=== PATIENT | female | born 1995 | race Caucasian/White ===

== ENCOUNTER → 2016-06-10 | Outpatient (CLI) | payer MEDICAID ==
[~2016-06-10] MED LIST: COLACE-DPS100 MG PO; FEOSOL-DPS325 MG PO; MOTRIN-DPS800 MG PO; MYLICON DPS80 MG PO; NIPPLECREAM TP; PERCOCET 5 DPS1 TAB PO; PRENATAL VIT1 TAB PO
--- NOTE | ~2016-06-10 | ECH ---
Transthoracic Echocardiography Report (TTE) Demographics Patient Name KARI GAMA Date of Study 06/10/2016 Patient Number [id number] Visit Number [id number] Date of 1995 Room Number Accession Number [id number] Gender Female Age 21 year(s) Referring Ramses Saleh Physician Office Clin Asst Kati Valdez Physician HOSTESS CASHIER RDCS Physician Interpreting Suresh Junior P D Driver Physician MD Supervising Ordering Physician Ramses Saleh MD/MLP HOSTESS CASHIER Nurse Stress Science Professor Conclusions Summary Technically good exam. The estimated left ventricular ejection fraction is 60-65%. Mild mitral regurgitation by color Doppler. Trivial tricuspid regurgitation by color Doppler. Normal pulmonary pressures. Procedure Type of Study TTE procedure:Echo Complete SF. Procedure Date Date: 06/10/2016 Start: 09:27 AM Technical Quality: Good visualization Indications:Murmur. Additional Indications:5 months Appropriate Use Criteria: 9 Height: 56 inches Weight: 104 pounds BSA: 1.34 m Rhythm: NSR HR: 77 bpm BP: 96/44 mmHg M-Mode/2D Measurements LV Diastolic Dimension: 4.65 cm LV Systolic Dimension: 3.13 cm LV Septum Diastolic: 0.66 cm LV PW Diastolic: 0.69 cm AO Root Dimension: 2.05 cm Cardiac Output: 2.44 l/min LA Dimension: 2.86 cm Cardiac Index: 1.82 l/min*m RV Diastolic Dimension: 3.3 cm LA volume index: 30 ml/m LVOT: 1.47 cm LVOT VTI: 18.68 cm RV Base: 2.6 cm LV Stroke volume: 31.69 ml RV Mid: 1.8 cm LV Stroke volume index: 23.65 ml/m TAPSE: 3 cm TDI-S': 16 cm/s Doppler Measurements AV Peak Velocity: 1.6 m/s MV Peak E-Wave: 1.14 m/s AV Peak Gradient: 10.24 mmHg MV Peak A-Wave: 0.58 m/s AV Mean Gradient: 5.8 mmHg MV E/A Ratio: 1.98 LVOT Peak Velocity: 0.95 m/s MV P1/2t: 51.3 msec AV Area (Continuity):1.12 cm MV Deceleration Time: 178.2 msec TR Velocity:2.32 m/s MV Area (PHT): 4.29 cm TR Gradient:21.57 mmHg PV Peak Velocity: 1.36 m/s Estimated RAP:3 mmHg PV Peak Gradient: 7.36 mmHg Estimated RVSP: 25 mmHg Estimated PASP: 24.57 mmHg E' Septal Velocity: 0.11 m/s A' Septal Velocity: 0.07 m/s E' Lateral Velocity: 0.18 m/s A' Lateral Velocity: 0.06 m/s RA Area: 10.67 cm Findings Left Ventricle Normal left ventricle size and function. Diastolic assessment reveals normal relaxation. Right Ventricle Normal right ventricle structure and function. Left Atrium Normal left atrial size. Right Atrium Normal right atrial size. Mitral Valve Normal mitral valve structure and function. Mild mitral regurgitation by color Doppler. Aortic Valve Normal aortic valve structure and function. Tricuspid Valve Normal tricuspid valve structure and function. Trivial tricuspid regurgitation by color Doppler. Normal pulmonary pressures. Pulmonic Valve Normal pulmonic valve structure and function. Pericardial Effusion No evidence of pericardial effusion. Miscellaneous Visualized portions of the aortic root and ascending aorta appear normal in size. Pleural Effusion No evidence of pleural effusion. Contractility Score LV regional wall motion:(0-Non visualized 1-Normal 2-Hypokinesis 3-Akinesis 4-Dyskinesis 5-Aneurysm) Signature
== END | disposition home or self-care (01) ==
LOC: CARD 09:00
DX: R01.1 Cardiac murmur, unspecified (principal); I34.0 Nonrheumatic mitral (valve) insufficiency